=== PATIENT | female | born 1945 | race Caucasian/White ===

== ENCOUNTER 2021-10-17 16:36 | Emergency (ER) | payer MEDICARE, SELFPAY ==
[2021-10-17] VITALS (7 sets, daily range): BP systolic 147–169; BP diastolic 71–86; PULSE 63–78; RESP 12–20; TEMP 37.1; O2SAT 94–99
--- NOTE | ~2021-10-17 | CT_ITS ---
EXAMINATION: CT abdomen pelvis w con INDICATION: Abdominal pain, history of neuroendocrine tumor TECHNIQUE: Computed tomographic images of the abdomen and pelvis were obtained after the administrati on of 100 cc of Omnipaque 350 intravenous contrast. The dose-length product (DLP) was 667.74 mGy-cm. Automated exposure control and iterative reconstruction technique were employed. COMPARISON: None available FINDINGS: Minimal dependent atelectasis is present in the lung bases. The heart size is normal. There is a small sliding hiatal hernia. There is a 2.8 cm cyst in the left hepatic lobe. The spleen, pancr eas, gallbladder, and adrenal glands are normal. There is a rim calcified lesion of the left kidney. The right kidney is unremarkable. No pathologically enlarged abdominal or pelvic lymph nodes are iden tified. There is no free intraperitoneal gas or evidence of bowel obstruction. There is a small bowel surgical anastomosis in the left mid abdomen. There is severe lumbar spondylosis. There are multiple small soft tissue attenuation nodules in the subcutaneous fat posteriorly overlying the flanks and b uttocks, possibly injection sites. Colonic diverticulosis is present without evidence of diverticulit is. IMPRESSION: 1. No CT correlate for the patient's symptoms. Reviewed, dictated and finalized at location F.
--- NOTE | ~2021-10-17 | CT_ITS ---
EXAMINATION: CT brain wo con INDICATION: Dizziness COMPARISON: None TECHNIQUE: Standard unenhanced head CT. The dose-length product (DLP) was 605.33 mGy-cm. The mA was a djusted according to patient size. Iterative reconstruction technique was employed. FINDINGS: There is no acute intraparenchymal hemorrhage. No evidence of mass lesion. No evidence of a cute infarction. There is mild periventricular and subcortical hypodensity probably related to small vessel ischemic disease. There is mild prominence of the sulci and ventricles related to cerebral atr ophy. Intracranial calcified cerebral atherosclerosis is noted. There are no extra-axial collections. There is no mass effect or midline shift. Changes in the globes are likely from ocular lens surgery. There are changes of right frontal craniotomy. The visualized sinuses and mastoid air cells are well aerated. IMPRESSION: 1. No acute intracranial abnormality. 2. Age related findings. Reviewed, dictated and finalized at location F.
--- NOTE | ~2021-10-17 | XR_ITS ---
EXAMINATION: XR chest 1V portable DATE: 10/17/2021 17:11 INDICATION: Chest pain TECHNIQUE: frontal view of the chest was obtained. COMPARISON: None FINDINGS: Mild biapical pleural-parenchymal scarring. No other airspace opacities, pulmonary edema, pleural eff usion or pneumothorax. The cardiomediastinal silhouette is normal. Visualized bones and soft tissues are unremarkable. IMPRESSION: 1. Mild biapical pleural-parenchymal scarring. No other acute cardiopulmonary disease. Reviewed, dictated and finalized at location B. IMPRESSION: 1. Mild biapical pleural-parenchymal scarring. No other acute cardiopulmonary d isease.
--- NOTE | 2021-10-17 16:43 | ECG_ITS ---
Measurements Intervals Fowler Rate: 64 P: 64 NE: 158 QRS: 38 QRSD: 90 T: 63 QT: 402 QTc: 416 Interpretive Statements SINUS RHYTHM NORMAL ECG NO PREVIOUS ECG AVAILABLE FOR COMPARISON Electronically Signed On 10-17-2021 16:59:32 CDT by Christopher Brennan M.D.
[2021-10-17 17:00] LABS: Basophils Percent Auto 0.4 % (0.2-1.2); Eosinophils Absolute Auto 0.2 K/mm3 (0-0.3); Eosinophils Percent Auto 7.3 % (0-4.4); Hematocrit 22.7 % (37.0-47.0); Hemoglobin 7.7 g/dL (12.0-15.0); Lymphocytes Absolute Auto 0.56 K/mm3 (0.9-3.2); Lymphocytes Percent Auto 24.1 % (18.3-44.2); Mean Corpuscular HGB Conc 33.9 g/dl (32-36); Mean Corpuscular Hemoglobin 35.8 pg (26-34); Mean Corpuscular Volume 105.6 fl (80-100); Mean Platelet Volume 9.6 fl (7.4-10.4); Monocytes Absolute Auto 0.4 K/mm3 (0.1-0.6); Monocytes Percent Auto 17.2 % (2.6-8.5); Neutrophils Absolute Auto 1.2 K/mm3 (1.3-6.7); Platelet Count Result 114 k/mm3 (150-375); Red Blood Count 2.15 M/mm3 (4.2-5.4); Red Cell Distribution Width 17.5 % (11.5-14.5); White Blood Count 2.3 K/mm3 (4.5-10.0)
--- NOTE | 2021-10-17 17:05 | ED.GENADULT ---
HPI - General Adult General Chief complaint: Nausea/Vomiting/Diarrhea Stated complaint: nausea and vomiting along with chest pain Time Seen by Provider: 10/17/21 16:54 Source: RN notes reviewed History of Present Illness HPI narrative: Patient presents emergency room from home for nausea vomiting and diarrhea. Patient states symptoms began approximately noon today. Patient states that she had onset of dizziness and felt like the room was spinning she states that the vision she then smelled with her was cooking that had her began to have nausea and vomiting. She states the nausea and vomiting continued since that time. Patient states she had numerous episodes of nausea vomiting as well as diarrhea states she had abdominal pain described as diffuse and cramping and is now moved into the midsternal chest. Patient states that she does have a history of a neuroendocrine tumor and is currently on chemotherapy and followed at [facility] she is on a 2 weeks on 2 weeks off of oral chemotherapy and is currently on her 2 weeks off states she did take an oral antiemetic at home but is unsure of the name she denies any fevers or chills Related Data Home Medications Medication Instructions Recorded Confirmed levothyroxine 25 mcg tablet 100 mcg PO DAILY 10/17/21 10/17/21 losartan 100 mg tablet 100 mg PO DAILY 10/17/21 10/17/21 omeprazole 20 mg capsule,delayed mg 10/17/21 release sulfamethoxazole 800 1 tablet PO 3XW 10/17/21 10/17/21 mg-trimethoprim 160 mg tablet Allergies Allergy/AdvReac Type Severity Reaction Status Date / Time Penicillins Allergy Rash Verified 10/17/21 17:26 Review of Systems Review of Systems: Gen.: Denies fevers or chills ENT: Denies congestion Respiratory: Denies shortness of breath or cough CV: Denies chest pain or palpitations GI: See HPI denies burning, urgency, frequency or hematuria Musculoskeletal: Denies back pain or muscle pain Neuro: Denies numbness, tingling, weakness or focal weakness Skin: Denies rash Except as documented, all other systems reviewed and negative FOR[facility]LY [facility] Past Medical History Medical History (Updated 10/17/21 @ 21:13 by Harsh Calderón DO) Neuroendocrine cancer Social History Social History (Updated 10/17/21 @ 17:06 by Harsh Calderón DO) Smoking status: Never smoker Exam Narrative: APPEARANCE: No acute distress, nontoxic, resting in bed Eyes: PERRL HEENT: Normocephalic, atraumatic, OMM RESPIRATORY: No respiratory distress, clear to auscultation bilaterally with no rhonchi wheezing or rales CARDIOVASCULAR: RRR s murmur ABDOMINAL: Soft nondistended diffusely tender to palpation no rebound or guarding MUSCULOSKELETAl: Moves all extremities. No clubbing, cyanosis or edema. NEURO: Awake and alert x 4. Following commands, speech normal, no focal deficits muscle strength 5 out of 5 bilateral upper and lower extremities SKIN:: Warm, dry. Normal Color PSYCHIATRIC: Normal affect/mood Course Course Emergency Course: Patient states she is feeling much better at this time states dizziness and nausea has resolved states she has no pain at this time she is able to get up and ambulate in the ED with no difficulty Called and discussed with for Dr. Zimmerman he notes the patient's oncologist states the patient had lab work it in the end of August showing a white count of 2.7 and hemoglobin of 9 and platelets of 116 feels that the patient is feeling better she may be discharged follow-up as an outpatient discussed with patient results of workup and diagnosis. Discussed need for follow-up with primary care, proper use of medication, and reasons to return to the emergency department. Patient understands and agrees to current treatment plan Vital Signs Vital signs: Vital Signs Temperature 98.8 F 10/17/21 16:40 Pulse Rate 78 10/17/21 16:40 Respiratory Rate 20 10/17/21 16:40 Blood Pressure 167/86 H 10/17/21 16:40 Pulse Oximetry 94
[2021-10-17 17:11] LABS: Anisocytosis 1+ (NORMAL); Macrocytosis 1+ (NORMAL); Ovalocytes 1+ (NORMAL); Platelet Estimate Decreased (Adequate)
[2021-10-17 17:14] LABS: Alanine Aminotransferase 14 U/L (6-35); Albumin Level 3.7 g/dL (3.5-5.1); Alkaline Phosphatase 75 U/L (38-126); Anion Gap 5 mmol/L (8-16); Aspartate Amino Transferase 21 U/L (14-36); Bilirubin,Total 0.5 mg/dL (0.2-1.3); Blood Urea Nitrogen 15 mg/dL (7-17); Calcium 8.3 mg/dL (8.4-10.2); Carbon Dioxide 23 mmol/L (22-30); Chloride 104 mmol/L (98-107); Estimated CRCL calculation 26 ml/min; Estimated Glomerular Filt Rate 43; Glucose 116 mg/dL (65-110); Lipase 41 U/L (23-300); Potassium 4.4 mmol/L (3.4-5.0); Sodium 132 mmol/L (137-145)
--- NOTE | 2021-10-17 17:30 | PC.NURSE ---
pt attempted to provide urine sample was not able to produce enough to send to lab.
[2021-10-17] MEDS: ONDANSETRON INJ 4 MG/2 ML VIAL IV PUSH (17:33)
[2021-10-17 17:37] LABS: Troponin I < 0.012 ng/mL (0.000-0.034)
[2021-10-17] MEDS: SODIUM CHLORIDE 0.9% IV 1,000 ML 999 ML IV CONT (17:42)
--- NOTE | 2021-10-17 19:14 | PC.NURSE ---
Assuming care of pt.
[2021-10-17 20:21] LABS: Appearance Urine Clear (Clear); Bilirubin Urine Negative (Negative); Color Urine Yellow (Yellow); Glucose Urine UA Negative (Negative); Ketones Urine Negative (Negative); Leukocyte Esterase Ur Negative LEU/UL (Negative); Nitrate Urine Negative (Negative); Protein Urine Negative (Negative); Urobilinogen Urine 0.2 mg/dL (<2.0); pH Urine 6.5 (5.0-9.0)
[2021-10-17 20:25] LABS: RBC Urine 0-2 /hpf (0-2); Squamous Epithelial Cell Urine Rare /hpf (Few); WBC Urine 0-3 /hpf
[2021-10-17 20:32] LABS: Add Urine Microscopic? YES; Blood Urine Trace (Negative)
== END 2021-10-17 21:39 | disposition home or self-care (01) ==
PROVIDERS: Emergency Provider Emergency Medicine
DX: R11.2 Nausea with vomiting, unspecified (principal); R42 Dizziness and giddiness; C7A.8 Other malignant neuroendocrine tumors
CPT/HCPCS: 36415; 70450; 71045; 74177; 80053; 81001; 83690; 84484; 85025; 93005; 96361; 96374; 96375; 99284; J0131; J2405; J7030; Q9967